=== PATIENT | male | born 1940 | race Caucasian/White ===

== ENCOUNTER 2017-10-05 09:00 | Outpatient (RCR) | payer MEDICARE ==
[~2017-10-05 09:00] MED LIST: ASPIRIN 32325 MG/TAB PO; ASPIRIN E.C. 8181 MG PO; ASPRIN PO; CIALIS; CIALIS5 MG PO; D; FISH OIL1 IU PO; HERBAL SUPPLEMENT; LISINOPRIL2.5 MG PO; LISINOPRIL5 MG PO; LOPRESSOR 225 MG/TAB PO; MULTI VITAMINS1 TAB PO; PLAVIX 75MG TAB75 MG PO; PRAVACHOL40 MG PO; PRAVACHOL80 MG PO; PRINIVIL2.5 MG PO; VITAMIN C BUFF500 MG PO; VITAMIN E1000 U/CAP PO; [UNRECOGNIZED DRUG - OTHER] PO
== END 2017-10-06 10:51 | disposition home or self-care (01) ==
LOC: MKS.ESL.PT 09:00
DX: M25.552 Pain in left hip (principal); M51.36 Other intervertebral disc degeneration, lumbar region
CPT/HCPCS: G8978-GP; G8979-GP; G8980-GP

== ENCOUNTER 2017-11-08 20:53 | Observation (INO) | payer MEDICARE ==
[~2017-11-08] VITALS: Ht 175.3 cm; Wt 89.6 kg
[2017-11-08 22:14] LABS: BASO % 0.3 % (0.0-2.0); EOS # 0.1 (0.0-0.7); EOS % 0.7 % (0-4.0); GRAN # 9.1 (1.4-6.5); GRAN % 77.8 % (42.2-75.2); HEMOGLOBIN 12.9 g/dl (13.5-18.0); LYMPH # 1.3 (1.2-3.4); LYMPH % 10.8 % (20.0-51.0); MEAN CELL VOLUME 92 fl (80.0-100.0); MEAN CORPUSCULAR HEMOGLOBIN 33 pg (27.0-31.0); MEAN CORPUSCULAR HGB CONC 36 g/dl (33.0-37.0); MEAN PLATELET VOLUME 8.9 fl (7.4-10.4); MONO # 1.2 (0.1-0.6); MONO % 10.1 % (1.7-9.3); PLATELET COUNT 193 K/mm3 (130-400); RED BLOOD COUNT 3.93 M/mm3 (4.20-5.60); REDCELL DISTRIBUTION WIDTH-CV 12.6 % (11.5-14.5)
[2017-11-08 22:15] LABS: HEMATOCRIT 36.3 % (42.0-52.0)
[2017-11-08 22:23] LABS: ALANINE AMINOTRANSFERASE 44 U/L (21-72); ALBUMIN 4.2 gm/dL (3.5-5.0); ALKALINE PHOSPHATASE 78 U/L (50-136); ANION GAP 13 mmol/L (7-16); AST,SGOT 45 U/L (15-37); BILIRUBIN,TOTAL 0.7 mg/dL (0.0-1.0); BLOOD UREA NITROGEN 29 mg/dL (9-20); CALCIUM 9.8 mg/dL (8.4-10.2); CARBON DIOXIDE 22 mmol/L (22-30); CHLORIDE 104 mmol/L (98-107); CREATININE, serum 1.87 mg/dL (0.66-1.25); GLUCOSE 110 mg/dL (74-106); LIPASE 122 U/L (23-300); POTASSIUM 4.1 mmol/L (3.4-5.0); SODIUM 139 mmol/L (137-145); TOTAL PROTEIN 7.4 gm/dL (6.4-8.2)
[2017-11-08 22:34] LABS: TROPONIN-I < 0.012 ng/mL (0.000-0.034)
[2017-11-08 23:24] LABS: COLLECTION METHOD CLEAN CATCH
[2017-11-08 23:33] LABS: MUCOUS Present /lpf; PH 5 (5-8); SQUAMOUS EPITHELIAL 0-2 /hpf; URINE APPEARANCE Clear; URINE BACTERIA None Seen /hpf; URINE BILIRUBIN Negative (NEGATIVE); URINE BLOOD Negative (NEGATIVE); URINE COLOR Yellow; URINE GLUCOSE Negative (NEGATIVE); URINE KETONE Negative (NEGATIVE); URINE LEUKOCYTE ESTERASE Negative (NEGATIVE); URINE NITRATE Negative (NEGATIVE); URINE PROTEIN(semi-quant) Negative (NEGATIVE); URINE RBC 0-2 /hpf; URINE UROBILINOGEN Negative (NEGATIVE)
[2017-11-08] MEDS ORDERED: VITAMIN D 1001000 IU (23:57)
[2017-11-08] MEDS ORDERED: VITAMIN C500 MG PO (23:57)
[2017-11-09] VITALS (14 sets, daily range): BP systolic 114–159; BP diastolic 40–72; PULSE 56–89; TEMP 97.8–100.3
[2017-11-09 08:28] LABS: CALCIUM 8.8 mg/dL (8.4-10.2); CREATININE, serum 1.86 mg/dL (0.66-1.25); POTASSIUM 4.2 mmol/L (3.4-5.0)
== END 2017-11-09 22:30 | disposition home or self-care (01) ==
LOC: COL.ER 20:53 → SURG 23:40
PROVIDERS: Emergency Medicine
DX: N20.1 Calculus of ureter (principal); I10 Essential (primary) hypertension; Z79.01 Long term (current) use of anticoagulants
CPT/HCPCS: C1769; C2617; J0690; J1100; J2270; J2405; J2704; J3010; J7030; Q9967

== ENCOUNTER → 2017-12-07 | Outpatient (CLI) | payer MEDICARE ==
[~2017-12-07] MED LIST changes: +VITAMIN C500 MG PO; +VITAMIN D 1001000 IU
== END ==
LOC: COL.RAD 14:48
DX: M54.5 Low back pain (principal); Z87.448 Personal history of other diseases of urinary system

== ENCOUNTER → 2018-07-21 | Outpatient (CLI) | payer MEDICARE | LOC: COL.RAD 12:29 | DX: N18.3 Chronic kidney disease, stage 3 (moderate) (principal); M54.5 Low back pain ==

== ENCOUNTER 2022-07-21 16:00 | Outpatient (RCR) | payer MEDICARE | END 2022-07-24 | disposition still patient (30) | LOC: MKS.ESL.PT | DX: R26.89 Other abnormalities of gait and mobility (principal) ==

== ENCOUNTER 2022-08-13 15:15 | Outpatient (RCR) | payer MEDICARE | END 2022-08-23 | disposition home or self-care (01) | LOC: MKS.ESL.PT | DX: R26.89 Other abnormalities of gait and mobility (principal) ==